=== PATIENT | male | born 1980 | race African-American/Black ===

== ENCOUNTER 2019-07-23 14:00 | Emergency (ER) | payer MEDICAID ==
[~2019-07-23] VITALS: Ht 177.8 cm; Wt 68.0 kg
--- NOTE | 2019-07-23 14:10 | NUR ---
ED Nurse Note: Pt walked into ED w/ R foot pain for 2 weeks. Pt pain 7/10 R foot and does not have numbness or tingling. Pt is alert and orientedx4, ambulatory. Pt denies nausea, vomiting. R foot is not swollen or have erythema.
[2019-07-23 14:12] VITALS: BP 112/76
[2019-07-23] MEDS ORDERED: Methocarbamol 750mg tab ORAL ONE (14:45)
--- NOTE | 2019-07-23 14:53 | Emergency Room Report ---
History of Present Illness General Chief Complaint: Pain Source: Patient Present Illness HPI 39-year-old male with no significant past medical history here from Street complaining of 2 weeks of right ankle pain with possible twisting injury. Rates pain 10 out of 10 and swelling noted. Denies any pain radiation and calf tenderness. Has not taken any medication other than ibuprofen for pain. Denies tingling and numbness at this time. Has full range of motion of the affected area. Denies all other injuries. Allergies: Coded Allergies: No Known Allergies (Unverified , 07/23/19) Patient History Past Medical History: see triage record Past Surgical History: unable to obtain Pertinent Family History: none Immunizations: UTD Reviewed Nursing Documentation: PMH: Agreed; PSxH: Agreed Nursing Documentation-PMH Past Medical History: No Stated History Review of Systems All Other Systems: negative except mentioned in HPI Physical Exam Vital Signs Date Time Temp Pulse Resp B/P (MAP) Pulse Ox O2 Delivery O2 Flow Rate FiO2 07/23/19 14:03 98.2 107 18 120/73 (89) 96 Room Air Sp02 EP Interpretation: reviewed, normal General Appearance: no apparent distress, alert, GCS 15, non-toxic Head: normocephalic, atraumatic Eyes: bilateral eye normal inspection, bilateral eye PERRL ENT: hearing grossly normal, normal pharynx, no angioedema, normal voice Neck: full range of motion, supple/symm/no masses Respiratory: chest non-tender, lungs clear, normal breath sounds, no rhonchi, no wheezing, speaking full sentences Cardiovascular #1: regular rate, rhythm, no edema, no murmur Cardiovascular #2: 2+ dorsalis pedis (R), 2+ dorsalis pedis (L) Gastrointestinal: normal bowel sounds, non tender, soft, non-distended, no guarding, no rebound Genitourinary: no CVA tenderness Musculoskeletal: back normal, digits/nails normal, no calf tenderness, non- tender, swelling - Right lateral malleolus Neurologic: alert, motor strength/tone normal, oriented x3, sensory intact, responsive, speech normal Psychiatric: judgement/insight normal, memory normal, mood/affect normal, no suicidal/homicidal ideation Skin: no rash Lymphatic: no adenopathy Procedures Splinting Splinting : Consent: Verbal Location: Right ankle Pre-Made Type: ADAM wrap Pre-Proc Neuro Vasc Exam: normal Post-Proc Neuro Vasc Exam: normal Patient Tolerated: Well Complications: None Medical Decision Making PA Attestation All my diagnosis and treatment plans were reviewed ad discussed with my supervising physician Dr. Mcginnis Diagnostic Impression: Primary Impression: Ankle sprain ER Course 39-year-old male with no significant past medical history here from Street complaining of 2 weeks of right ankle pain with possible twisting injury. Rates pain 10 out of 10 and swelling noted. Denies any pain radiation and calf tenderness. Has not taken any medication other than ibuprofen for pain. Denies tingling and numbness at this time. Has full range of motion of the affected area. Denies all other injuries. Ddx considered but are not limited to: ankle sprain, ankle strain, ankle fracture, ankle contusion Vital signs: are WNL, pt. is afebrile H&PE are most consistent with: right ankle sprain ORDERS: ankle x-ray, Robaxin, Motrin ED INTERVENTIONS: Adam wrap, Robaxin, Motrin DISCHARGE: At this time pt. is stable for d/c to home. Will provide printed patient care instructions, and any necessary prescriptions. Care plan and follow up instructions have been discussed with the patient prior to discharge. Patient to follow-up as directed, if worsening symptoms return to the emergency room Other X-Ray Diagnostic Results Other X-Ray Diagnostic Results : X-Ray ordered: Right ankle # of Views/Limited Vs Complete: 3 View Indication: Pain EP Interpretation: Yes PA Xray: Interpretation reviewed, by supervising MD, and agrees with findings. Interpretation: no dislocation, no soft tissue swelling, no fractures Impression: No acute disease Electronically Signed by: Gerry Bah PA-C Last Vital Signs Date Time Temp Pulse Resp B/P (MAP) Pulse Ox O2 Delivery O2 Flow Rate FiO2 07/23/19 14:12 98.2 67 19 112/76 97 Room Air Status: improved Disposition: HOME, SELF-CARE Condition: Stable Scripts Ibuprofen* (MOTRIN*) 600 Mg Tablet 600 MG ORAL Q8H PRN for For Pain, #30 TAB 0 Refills Prov: Gerry Sim 07/23/19 Methocarbamol* (ROBAXIN-500*) 500 Mg Tablet 500 MG ORAL TID PRN for For Pain, #15 TAB 0 Refills Prov: Gerry Sim 07/23/19 Patient Instructions: Ankle Sprain, [id number] Additional Instructions: Take medication as directed, follow-up with your primary care provider, if worsening symptoms return to the emergency room Gerry Sim Jul 23, 2019 14:53
[2019-07-23] MEDS ORDERED: ROBAXIN-500MG ORAL (15:01)
[2019-07-23] MEDS ORDERED: IBUPROFEN600 MG ORAL (15:01)
--- NOTE | 2019-07-23 15:19 | NUR ---
ER DISCHARGE NOTE: Patient is cleared to be discharged per ERMD, pt is aox4, on room air, with stable vital signs. pt was given dc and prescription instructions, pt was able to verbalize understanding, pt id band removed. pt is able to ambulate with steady gait. pt took all belongings. Pt provided sandwhihch and resources. Pt refused to get meds filled out at [facility] and says he will do it. Homeless log and mini cog filled out.
[2019-07-23 15:20] VITALS: BP 110/75
--- NOTE | 2019-07-23 15:35 | Diagnostic Imaging Report ---
Indication: Right ankle pain Technique: 3 views of the right ankle Comparison: none Findings: No acute fractures. No dislocations. The joint spaces are preserved Impression: Negative
== END 2019-07-23 15:20 | disposition home or self-care (01) ==
LOC: EMR 15:20
DX: S93.401A Sprain of unspecified ligament of right ankle, initial encounter (principal); X50.1XXA Overexertion from prolonged static or awkward postures, initial encounter; Y93.9 Activity, unspecified; Y92.9 Unspecified place or not applicable
CPT/HCPCS: 73610; Z7502; 99283

== ENCOUNTER 2019-08-15 10:10 | Emergency (ER) | payer MEDICAID ==
[~2019-08-15] VITALS: Ht 175.3 cm; Wt 74.8 kg
[~2019-08-15 10:10] MED LIST: IBUPROFEN600 MG ORAL; ROBAXIN-500MG ORAL
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
[2019-08-15] MEDS ORDERED: Ketorolac 60mg Inj IM ONE (10:45)
--- NOTE | 2019-08-15 12:28 | Diagnostic Imaging Report ---
Indication: Foot Pain Comparison: None Findings: 3 views of the right foot were obtained. No acute fractures, malalignment, erosions or periostitis are identified. Impression: No acute findings.
--- NOTE | 2019-08-15 12:29 | Emergency Room Report ---
History of Present Illness General Chief Complaint: Lower Extremity Injury Source: Patient Present Illness HPI This patient states that he has had right foot and ankle pain for the past month. He states he intermittently gets swelling and pain in this foot previously from an old injury and fracture. He denies fever or chills. He denies nausea or vomiting. He denies recent trauma. He denies redness or warmth. He has no other complaints. COVID-19 risk:Travel to affect: No Has patient experienced greene: No Allergies: Coded Allergies: No Known Allergies (Unverified , 07/23/19) Patient History Past Medical History: none Past Surgical History: none Social History: Denies: smoking, alcohol use, drug use Reviewed Nursing Documentation: PMH: Agreed; PSxH: Agreed Nursing Documentation-PMH Past Medical History: No Stated History Review of Systems All Other Systems: negative except mentioned in HPI Physical Exam Vital Signs Date Time Temp Pulse Resp B/P (MAP) Pulse Ox O2 Delivery O2 Flow Rate FiO2 08/15/19 10:19 98.1 68 16 134/90 (105) 98 Room Air Sp02 EP Interpretation: reviewed, normal General Appearance: no apparent distress, alert, GCS 15, non-toxic Head: normocephalic, atraumatic Eyes: bilateral eye normal inspection, bilateral eye PERRL ENT: hearing grossly normal, no angioedema, normal voice Neck: normal inspection Respiratory: no respiratory distress, no retraction, no accessory muscle use, speaking full sentences Rectal: deferred Musculoskeletal: back normal, normal range of motion, swelling - 1+swelling R. ankle/foot. No erythema, no warmth. Neurologic: alert, motor strength/tone normal, oriented x3, sensory intact, responsive, speech normal Psychiatric: judgement/insight normal, memory normal, mood/affect normal, no suicidal/homicidal ideation Skin: no rash, normal color Medical Decision Making Diagnostic Impression: Primary Impression: Lymphedema ER Course Patient has findings on exam consistent with mild lymphedema. I suspect this is secondary to his old injury of his ankle and foot. There is no findings on exam that would make me concerned for infection such as warmth or erythema. He has no systemic symptoms. Vital signs are normal. Specifically is a normal temperature. This is a chronic issue. There is no emergency medical condition at this does not need to be further evaluated in emergency department. The patient was given list of the local free clinics and clinics to take [facility]. He is instructed to follow-up at 1 of these outpatient clinics or an outpatient orthopedic clinic. I did obtain x-rays of the ankle and foot which were negative for fracture. Overall, this patient is well-appearing without emergency medical condition. The patient is given return precautions and follow -up instructions. Other X-Ray Diagnostic Results Other X-Ray Diagnostic Results : X-Ray ordered: R. ankle, R. fooot # of Views/Limited Vs Complete: Complete Indication: Pain EP Interpretation: Yes Interpretation: no fractures Impression: No acute disease - See EMR for official report. Electronically Signed by: Katharina Contreras DO Last Vital Signs Date Time Temp Pulse Resp B/P (MAP) Pulse Ox O2 Delivery O2 Flow Rate FiO2 08/15/19 11:23 98.0 08/15/19 10:19 68 16 134/90 (105) 98 Room Air Disposition: HOME, SELF-CARE Condition: Stable Referrals: NOT CHOSEN IPA/,REFERRING (PCP) Katharina Contreras DO Aug 15, 2019 12:29
--- NOTE | 2019-08-15 12:29 | Diagnostic Imaging Report ---
Indication: Pain right ankle Comparison: None Findings: 3 views of the right ankle obtained. No acute fracture, malalignment, periostitis, or osteochondral defects are identified. Soft tissues are unremarkable.. Impression: No acute findings
[2019-08-15 12:30] VITALS: BP 132/91
--- NOTE | 2019-08-15 12:30 | NUR ---
ER DISCHARGE NOTE: Patient is cleared to be discharged per ERMD, pt is aox4, on room air, with stable vital signs. pt was given dc and prescription instructions, pt was able to verbalize understanding, pt id band removed. pt is able to ambulate with steady gait. pt took all belongings. Homeless log filled out and mini cog filled out. Pt refused to wait to get meds filled out at [facility]. Pt provided food and resources.
== END 2019-08-15 12:30 | disposition home or self-care (01) ==
LOC: EMR 10:38
DX: M25.571 Pain in right ankle and joints of right foot (principal); I89.0 Lymphedema, not elsewhere classified
CPT/HCPCS: 73610; 73630; 96372; Z7502; 99284

== ENCOUNTER 2019-08-17 12:20 | Emergency (ER) | payer MEDICAID ==
[~2019-08-17] VITALS: Ht 175.3 cm; Wt 63.5 kg
--- NOTE | 2019-08-17 12:48 | NUR ---
ED Nurse Note: Pt walked in from home c/o right ankle pain 03/08, denies injury. Per pt, [place] [facility] [place] [facility]. Pain persists. Respirations even and unlabored on room air. Vitals stable as documented.
--- NOTE | 2019-08-17 12:57 | NUR ---
ED Nurse Note: ED MD aware
[2019-08-17] MEDS ORDERED: IBUPROFEN600 MG ORAL (13:00)
[2019-08-17 13:10] VITALS: BP 133/78
--- NOTE | 2019-08-17 13:10 | NUR ---
Homeless Discharge: Patient is being discharged from medical care. Awake, alert and oriented x4. After care instructions, including referral to community resources were given. Patient verbalized understanding of After care instructions; at this time patient does not request medications, equipment or placement. Patient signed patient consent in the medical record for patient destination upon discharge. All medical devices such as ID band were removed. Patient ambulated out using crutches with all personal belongings with steady gait.
--- NOTE | 2019-08-17 14:14 | Emergency Room Report ---
History of Present Illness General Chief Complaint: Lower Extremity Injury Source: Patient Present Illness HPI 39-year-old male presents ED complaining of right ankle pain and swelling. States he was seen here in June for an ankle sprain. States that since then he has been having persistent swelling to the right ankle. Was seen here a few days ago for same thing. States that the ibuprofen is not helping. States he does continue to walk on his right leg. Pain is dull, 5 out of 10, nonradiating. No other aggravating relieving factors. Denies any other associated symptoms COVID-19 risk:Contact w/high r: No COVID-19 risk:Travel to affect: No Has patient experienced greene: No Allergies: Coded Allergies: No Known Allergies (Unverified , 07/23/19) Patient History Past Medical History: none Past Surgical History: none Pertinent Family History: none Social History: Denies: smoking, alcohol use, drug use Immunizations: UTD Reviewed Nursing Documentation: PMH: Agreed; PSxH: Agreed Nursing Documentation-PMH Past Medical History: No Stated History Review of Systems All Other Systems: negative except mentioned in HPI Physical Exam Vital Signs Date Time Temp Pulse Resp B/P (MAP) Pulse Ox O2 Delivery O2 Flow Rate FiO2 08/17/19 12:39 98.2 89 20 130/73 (92) 98 Room Air Sp02 EP Interpretation: reviewed, normal General Appearance: no apparent distress, alert, GCS 15, non-toxic Head: normocephalic, atraumatic Eyes: bilateral eye normal inspection, bilateral eye PERRL ENT: hearing grossly normal, normal pharynx, no angioedema, normal voice Neck: full range of motion, supple/symm/no masses Respiratory: chest non-tender, lungs clear, normal breath sounds, speaking full sentences Cardiovascular #1: regular rate, rhythm, no edema Cardiovascular #2: 2+ carotid (R), 2+ carotid (L), 2+ radial (R), 2+ radial (L) , 2+ dorsalis pedis (R), 2+ dorsalis pedis (L) Gastrointestinal: normal bowel sounds, non tender, soft, non-distended, no guarding, no rebound Rectal: deferred Genitourinary: normal inspection, no CVA tenderness Musculoskeletal: back normal, normal range of motion, gait/station normal, swelling - R ankle Neurologic: alert, motor strength/tone normal, oriented x3, sensory intact, responsive, speech normal Psychiatric: judgement/insight normal, memory normal, mood/affect normal, no suicidal/homicidal ideation Reflexes: 3+ bicep (R), 3+ bicep (L), 3+ tricep (R), 3+ tricep (L), 3+ knee (R) , 3+ knee (L) Lymphatic: no adenopathy Procedures Splinting Splinting : Consent: Verbal Pre-Made Type: KINJAL wrap - crutches Pre-Proc Neuro Vasc Exam: normal Post-Proc Neuro Vasc Exam: normal Patient Tolerated: Well Medical Decision Making Diagnostic Impression: Primary Impression: Ankle swelling Qualified Codes: M25.471 - Effusion, right ankle ER Course Hospital Course 39 yo M presents with persistent R ankle swelling. Differential diagnoses include: Fracture, dislocation, sprain, contusion, bursitis Clinical course Patient placed on stretcher. After initial history, physical exam reveals a male in no acute distress. There is some swelling to the lateral malleolus of the right ankle. No bruising or crepitus. Full range of motion noted. previous x-rays are unremarkable. I explained to the patient that if he continues to bear weight he will never get better. Patient needs to maintain nonweightbearing with crutches. I will provide Ortho referrals. Safe for discharge Diagnosis - ankle swelling stable and discharged to home with prescription for Motrin. Followup with PMD/ ortho. Return to ED if symptoms recur or worsen Last Vital Signs Date Time Temp Pulse Resp B/P (MAP) Pulse Ox O2 Delivery O2 Flow Rate FiO2 08/17/19 13:10 98.0 74 20 133/78 98 Room Air Status: improved Disposition: HOME, SELF-CARE Condition: Stable Scripts Ibuprofen* (MOTRIN*) 600 Mg Tablet 600 MG ORAL Q8H PRN for For Pain, #30 TAB 0 Refills Prov: Alex Mcginnis MD 08/17/19 [facility] 24 hour /7 days a week by Appointment Only [address] [facility] [address] [facility] [address] Patient Instructions: Ankle Sprain Alex Mcginnis MD Aug 17, 2019 14:14
== END 2019-08-17 13:10 | disposition home or self-care (01) ==
LOC: EMR 12:58
DX: M25.471 Effusion, right ankle (principal)
CPT/HCPCS: 29515; 99282

== ENCOUNTER 2019-08-28 15:07 | Emergency (ER) | payer MEDICAID ==
[~2019-08-28] VITALS: Ht 175.3 cm; Wt 63.5 kg
[2019-08-28 15:22] VITALS: BP 118/74
--- NOTE | 2019-08-28 15:24 | Emergency Room Report ---
History of Present Illness General Chief Complaint: Pain Source: Patient Present Illness HPI 39-year-old male presents to the emergency department complaining of 5 out of 10 severity pain, dryness, cracking/sloughing of the skin to the right hand for over 15 years. According to the patient he has had no changes in character of his symptoms since initial onset. Patient states that he has been seen by multiple doctors who have been prescribing him creams which have provided little to no relief of his symptoms. Patient reports he is getting the same amount of relief as [id number] lotions that he is previously been using. Pt. denies fevers, chills or swollen tender lymph nodes. Denies lesions/rashes elsewhere on the body. Denies new medications or body washes or creams. Denies swelling of the lips, tongue , throat or airway. Denies wheezing, or shortness of breath. Denies recent travel, recent illness or ill contacts. denies blisters, oral lesions, or sloughing of the skin. Allergies: Coded Allergies: No Known Allergies (Unverified , 07/23/19) COVID-19 Screening Contact w/high risk pt: No Recent Travel to affected area: No Experienced COVID-19 symptoms?: No Patient History Past Medical History: see triage record Past Surgical History: none Pertinent Family History: none Reviewed Nursing Documentation: PMH: Agreed; PSxH: Agreed Nursing Documentation-PMH Past Medical History: No Stated History Review of Systems All Other Systems: negative except mentioned in HPI Physical Exam Sp02 EP Interpretation: reviewed, normal General Appearance: no apparent distress, alert, GCS 15, non-toxic Head: normocephalic, atraumatic Eyes: bilateral eye normal inspection, bilateral eye PERRL ENT: hearing grossly normal, normal voice Neck: full range of motion, other - no stridor Respiratory: chest non-tender, lungs clear, normal breath sounds, no rhonchi, no respiratory distress, no accessory muscle use, no wheezing, speaking full sentences Cardiovascular #1: regular rate, rhythm, normal capillary refill Cardiovascular #2: 2+ radial (R), 2+ radial (L) Musculoskeletal: normal range of motion, gait/station normal, non-tender Neurologic: alert, motor strength/tone normal, oriented x3, sensory intact, responsive, speech normal Psychiatric: judgement/insight normal Skin: rash - dry flaky sking of the right hand both dorsally and on palmar surface. No localized lesions, blisters or vesicles. NO erythema, no bleeding. mildly hyperpigmentation to the skin that is sloughing off. Lymphatic: no adenopathy Medical Decision Making PA Attestation Dr. Hurtado is my supervising Physician whom patient management has been discussed with. Diagnostic Impression: Primary Impression: Dermatitis ER Course 39-year-old male presents to the emergency department complaining of 5 out of 10 severity pain, dryness, cracking/sloughing of the skin to the right hand for over 15 years. According to the patient he has had no changes in character of his symptoms since initial onset. Patient states that he has been seen by multiple doctors who have been prescribing him creams which have provided little to no relief of his symptoms. Patient reports he is getting the same amount of relief as [id number] lotions that he is previously been using. Pt. denies fevers, chills or swollen tender lymph nodes. Denies lesions/rashes elsewhere on the body. Denies new medications or body washes or creams. Denies swelling of the lips, tongue , throat or airway. Denies wheezing, or shortness of breath. Denies recent travel, recent illness or ill contacts. denies blisters, oral lesions, or sloughing of the skin. Ddx considered but are not limited to cellulitis, scabies, shingles, varicella, dermatitis, urticaria, eczema, tinea, viral exanthem, SJS Vital signs: are WNL, pt. is afebrile H&PE are most consistent with Chronic- long standing right hand dermatitis. no evidence of anaphylaxis, SJS or SSS, ORDERS: none required at this time, the diagnosis is clinical ED INTERVENTIONS: None required at this time. d/w pt. need for a PCP eval and dermatology referral. D/w pt. that he is in a stable condition and That An emergent condition is not suspected at this time. -I do not identify an emergent condition at this time. With current presentation , pt. is stable for close outpatient follow up and conservative treatment. D/ w pt. to return promptly to ED with worsening or new symptoms.- Pt. verbalizes' understanding and agreement with proposed treatment plan. DISCHARGE: At this time pt. is stable for d/c to home. Will provide printed patient care instructions, and any necessary prescriptions. Care plan and follow up instructions have been discussed with the patient prior to discharge. Disposition: HOME, SELF-CARE Condition: Stable Scripts Triamcinolone Acetonide (Triamcinolone Acetonide 0.5% Cream*) 15 Gm Cream..g. 1 APPLIC TP BID, #15 GM 1 Refill Prov: Karie Braun 08/28/19 Referrals: NOT CHOSEN IPA/MD,REFERRING (PCP) Patient Instructions: Hand Dermatitis, [id number] Additional Instructions: Take medications as directed. Follow up with a Primary Care Provider in 3-5 days for DERMATOLOGY REFERRAL , even if your symptoms have resolved. FOR Primary Care Provider information contact the number on the back of your insurance Card. Return sooner to ED if new symptoms occur, or current symptoms become worse. - Please note that this Emergency Department Report was dictated using [employer] marketing analyst technology software, occasionally this can lead to erroneous entry secondary to interpretation by the dictation equipment. Karie Braun Aug 28, 2019 15:24
[2019-08-28] MEDS ORDERED: TRIAMCINOLONE A15 G1 TP (15:46)
[2019-08-28 16:11] VITALS: BP 125/70
--- NOTE | 2019-08-28 16:11 | NUR ---
ER DISCHARGE NOTE: Pt was seen due to right hand pain skin irritation. Patient is cleared to be discharged per PA, pt is aox4, on room air, with stable vital signs. pt was given dc and prescription instructions, pt was able to verbalize understanding, pt id band removed. pt is able to ambulate with steady gait. pt took all belongings.
== END 2019-08-28 16:11 | disposition home or self-care (01) ==
LOC: EMR 15:19
DX: L30.9 Dermatitis, unspecified (principal)
CPT/HCPCS: 99282

== ENCOUNTER 2019-09-13 16:52 | Emergency (ER) | payer MEDICAID ==
[~2019-09-13] VITALS: Ht 175.3 cm; Wt 68.0 kg
[~2019-09-13 16:52] MED LIST changes: +TRIAMCINOLONE A15 G1 TP
[2019-09-13 17:03] VITALS: BP 130/80
--- NOTE | 2019-09-13 17:07 | Emergency Room Report ---
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 Reports that every time that he walks a lot his pain gets worse. Right now he is rating her pain 5 out of 10 without radiation. Is requesting a prescription for ibuprofen and a topical ointment. Denies any new fall or injury. Denies tingling and numbness peer denies any pain radiation. Denies any calf tenderness, chest pain, shortness of breath, headache or dizziness. Appears to be stable with stable vital signs. Allergies: Coded Allergies: No Known Allergies (Unverified , 07/23/19) COVID-19 Screening Contact w/high risk pt: No Recent Travel to affected area: No Experienced COVID-19 symptoms?: No Patient History Past Medical History: see triage record Past Surgical History: none Pertinent Family History: none Immunizations: UTD Reviewed Nursing Documentation: PMH: Agreed; PSxH: Agreed Nursing Documentation-PMH Past Medical History: No History, Except For Hx Cardiac Problems: No - chronic leg pain Review of Systems All Other Systems: negative except mentioned in HPI Physical Exam Vital Signs Date Time Temp Pulse Resp B/P (MAP) Pulse Ox O2 Delivery O2 Flow Rate FiO2 09/13/19 16:53 97.9 88 20 126/79 (95) 99 Room Air Sp02 EP Interpretation: reviewed, normal General Appearance: well appearing, no apparent distress Head: normocephalic, atraumatic ENT: hearing grossly normal, normal voice Neck: full range of motion, supple Respiratory: lungs clear, no rhonchi, no respiratory distress, no wheezing, speaking full sentences Cardiovascular #1: regular rate, rhythm, no edema, no murmur Cardiovascular #2: 2+ dorsalis pedis (R), 2+ dorsalis pedis (L) Gastrointestinal: soft Rectal: deferred Genitourinary: no CVA tenderness Musculoskeletal: gait/station normal, non-tender Neurologic: alert, normal gait Psychiatric: mood/affect normal Skin: no rash Lymphatic: no adenopathy Medical Decision Making PA Attestation All diagnoses and treatment plans were reviewed and discussed with my supervising physician Dr. 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 Reports that every time that he walks a lot his pain gets worse. Right now he is rating her pain 5 out of 10 without radiation. Is requesting a prescription for ibuprofen and a topical ointment. Denies any new fall or injury. Denies tingling and numbness peer denies any pain radiation. Denies any calf tenderness, chest pain, shortness of breath, headache or dizziness. Appears to be stable with stable vital signs. Ddx considered but are not limited to: foot fracture, foot sprain, foot contusion, foot strain Vital signs: are WNL, pt. is afebrile H&PE are most consistent with: Chronic foot pain ORDERS: No x-ray necessary at this time as it has been no new fall or injury patient was recently seen 2 weeks ago, ibuprofen, Voltaren gel ED INTERVENTIONS: Ibuprofen DISCHARGE: At this time pt. is stable for d/c to home. Will provide printed patient care instructions, and any necessary prescriptions. Care plan and follow up instructions have been discussed with the patient prior to discharge. Gave a list of free clinics as well as orthopedic urgent care. Patient to avoid walking for long distances, take medication as directed, if worsening symptoms return to the emergency room Last Vital Signs Date Time Temp Pulse Resp B/P (MAP) Pulse Ox O2 Delivery O2 Flow Rate FiO2 09/13/19 17:03 98.1 80 18 130/80 99 Room Air Disposition: HOME, SELF-CARE Condition: Stable Scripts Diclofenac Sodium (VOLTAREN) 100 Gm Gel..gram. 2 GM TP TID, #100 GM Prov: Gerry Sim 09/13/19 Ibuprofen* (MOTRIN*) 600 Mg Tablet 600 MG ORAL Q8H PRN for FOR PAIN, #30 TAB 0 Refills Prov: Gerry Sim 09/13/19 Referrals: NOT CHOSEN [facility]/,REFERRING (PCP) Patient Instructions: Chronic Pain Gerry Sim Sep 13, 2019 17:07
[2019-09-13] MEDS ORDERED: IBUPROFEN600 M1 ORAL (17:09)
[2019-09-13] MEDS ORDERED: VOLTAREN100 G1 TP (17:09)
[2019-09-13 17:38] VITALS: BP 122/74
== END 2019-09-13 17:40 | disposition home or self-care (01) ==
LOC: EMR 17:03
DX: M25.571 Pain in right ankle and joints of right foot (principal); G89.29 Other chronic pain
CPT/HCPCS: 99282

== ENCOUNTER 2019-10-27 19:32 | Emergency (ER) | payer MEDICAID ==
[~2019-10-27] VITALS: Ht 177.8 cm; Wt 68.0 kg
[~2019-10-27 19:32] MED LIST changes: +IBUPROFEN600 M1 ORAL; +VOLTAREN100 G1 TP
[2019-10-27 19:44] VITALS: BP 115/82
[2019-10-27] MEDS ORDERED: IBUPROFEN600 M1 ORAL (19:52)
--- NOTE | 2019-10-27 19:57 | Emergency Room Report ---
History of Present Illness General Chief Complaint: Pain Source: Patient Present Illness HPI Patient presents with complaints of right ankle swelling Also initially complains of some discomfort when walking Denies any calf pain or swelling denies any acute trauma denies any chest pain or shortness of breath patient reports that he has been to several emergency rooms Has had x-ray and imaging and is not able to get a clear answer regarding the etiology When asked regarding follow-ups patient reports that he has no money for that Denies any other recent fall denies any back pain Allergies: Coded Allergies: No Known Allergies (Unverified , 07/23/19) COVID-19 Screening Contact w/high risk pt: No Recent Travel to affected area: No Experienced COVID-19 symptoms?: No COVID-19 Testing performed CHIEF RESOURCE OFFICER: No Patient History Past Medical History: see triage record Reviewed Nursing Documentation: PMH: Agreed; PSxH: Agreed Nursing Documentation-PM Past Medical History: No History, Except For Hx Cardiac Problems: No - chronic leg pain Review of Systems All Other Systems: negative except mentioned in HPI Physical Exam Vital Signs Date Time Temp Pulse Resp B/P (MAP) Pulse Ox O2 Delivery O2 Flow Rate FiO2 10/27/19 19:38 98.4 107 17 112/70 (84) 98 Room Air Sp02 EP Interpretation: reviewed, normal General Appearance: well appearing, no apparent distress Head: normocephalic, atraumatic Eyes: bilateral eye PERRL, bilateral eye EOMI ENT: hearing grossly normal, EOM grossly intact Neck: supple Respiratory: lungs clear Cardiovascular #1: normal peripheral pulses, regular rate, rhythm Musculoskeletal: swelling - There is some minimal swelling noted to the medial aspect of the right ankle the calf itself is nontender nonswollen no erythema neurovascularly intact Neurologic: alert, oriented x3 Psychiatric: normal inspection Skin: other - As above Lymphatic: no adenopathy Medical Decision Making Diagnostic Impression: Primary Impression: Ankle swelling ER Course Multiple differentials and consideration including but not limited to previous injury, sprain/strain, venous insufficiency, DVT Patient does not have any calf tenderness Has had fairly chronic process with this discomfort X-ray imaging is reviewed from previous which did not show any acute process patient is encouraged to follow closely with primary physician with podiatry referral Last Vital Signs Date Time Temp Pulse Resp B/P (MAP) Pulse Ox O2 Delivery O2 Flow Rate FiO2 5/30/20 19:44 98.4 68 16 115/82 99 Room Air Status: improved Disposition: HOME, SELF-CARE Condition: Stable Scripts Ibuprofen* (MOTRIN*) 600 Mg Tablet 600 MG ORAL Q6H PRN for FOR PAIN, #20 TAB 0 Refills Prov: Brandt Hurtado DO 10/27/19 [facility] - Peds ER - Patient Instructions: Edema, [id number] Additional Instructions: Patient is provided with the discharge instructions notified to follow up with primary doctor in the next 2-3 days otherwise return to the er with any worsening symptoms. Please note that this report is being documented using [employer] technology. This can lead to erroneous entry secondary to incorrect interpretation by the dictating instrument. Brandt Hurtado DO October 27, 2019 19:57
[2019-10-27 19:58] VITALS: BP 110/78
== END 2019-10-27 19:58 | disposition home or self-care (01) ==
LOC: EMR 19:50
DX: R22.41 Localized swelling, mass and lump, right lower limb (principal)
CPT/HCPCS: 99282